=== PATIENT | female | born 2000 | race Caucasian/White ===

== ENCOUNTER 2021-11-14 20:55 | Emergency (ER) | payer OTHER ==
[~2021-11-14] VITALS: Ht 165.1 cm; Wt 72.6 kg
[2021-11-14 21:35] LABS: URINE BILIRUBIN NEGATIVE (Negative); URINE BLOOD NEGATIVE (Negative); URINE CLARITY CLEAR; URINE COLOR YELLOW; URINE GLUCOSE-RANDOM* NEGATIVE (Negative); URINE KETONES NEGATIVE (Negative); URINE LEUKOCYTES-REFLEX NEGATIVE (Negative); URINE NITRITE-REFLEX NEGATIVE (Negative); URINE PROTEIN (DIPSTICK) NEGATIVE (Negative); URINE UROBILINOGEN 0.2 E.U./dl (0.2-1.0)
[2021-11-14 21:53] LABS: ABSOLUTE NEUTROPHILS 5.2 thou/uL (1.4-8.2); BASOPHILS 0.6 % (0.0-2.0); EOSINOPHILS 0.5 % (0.0-3.0); HEMOGLOBIN 10.3 gm/dL (12.0-15.0); LYMPHOCYTES 21.7 % (24.0-44.0); MCHC 34.3 g/dL (28.0-37.0); MCV 87.7 fL (80.0-100.0); MONOCYTES 7.7 % (1.0-8.0); PLATELET COUNT 262 thou/uL (150-400); POLYS 69.5 % (36.0-66.0); RBC 3.42 mil/uL (4.20-5.00); RDW 13.5 % (10.5-14.5); WBC 7.4 thou/uL (4.0-11.0)
[2021-11-14 22:41] LABS: CALCIUM 9.1 mg/dL (8.5-10.1); CREATININE 0.5 mg/dL (0.6-1.0); POTASSIUM 3.8 mmol/L (3.5-5.1)
[2021-11-14 22:48] LABS: ALBUMIN 3.4 g/dL (3.4-5.0); TOTAL BILIRUBIN 0.2 mg/dL (0.2-1.0)
[2021-11-15 01:51] VITALS: BP 105/61
--- NOTE | 2021-11-15 07:51 | EKG ---
[place] [address] [address] [facility] 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 Wet Process: fátima quezada : 2000 Requested By: Rivera Reeder Order Number: [id number] MD: Juan Espinosa Measurements Intervals [place] Rate: 78 P: 31 AL: 126 QRS: 32 QRSD: 95 T: 7 QT: 385 QTc: 439 Interpretive Statements Sinus rhythm Low voltage, precordial leads Borderline T abnormalities, anterior leads No previous ECG available for comparison Electronically Signed On 11-15-2021 7:51:20 [employer] by Juan Espinosa [email or web address] <ELECTRONICALLY SIGNED> By: Juan Espinosa MD, [facility] 11/15/21 [id number] Juan Espinosa MD, FACC /EPI
== END 2021-11-15 01:54 | disposition home or self-care (01) ==
LOC: ER 20:55
PROVIDERS: Emergency Medicine
DX: O26.892 Other specified pregnancy related conditions, second trimester (principal); H54.61 Unqualified visual loss, right eye, normal vision left eye; Z3A.22 22 weeks gestation of pregnancy